=== PATIENT | male | born 1990 | race Caucasian/White ===

== ENCOUNTER → 2018-11-28 | Outpatient (CLI) | payer BC ==
[~2018-11-28] MED LIST: IOHEXOL 240 MG/ML 50ML VIAL. PO ONE; IOHEXOL 300 MG/ML 100ML VIAL. IV ONE; METR-34 PO
--- NOTE | 2018-11-28 09:55 | KCIC ---
Examination: CT of the abdomen pelvis with oral and IV contrast HISTORY: History of umbilical bleeding COMPARISON: None TECHNIQUE: Axial CT images of the abdomen pelvis were performed with oral and IV contrast. Coronal and sagittal reformatted performed Exposure: One or more of the following individualized dose reduction techniques were utilized for this examination: 1. Automated exposure control 2. Adjustment of the mA and/or kV according to patient size 3. Use of iterative reconstruction technique FINDINGS: Minimal bibasilar lung atelectasis. No evidence of free air identified in the abdomen. The visualized liver, spleen, adrenals grossly appears unremarkable. Gallbladder is mildly distended. The stomach is mildly distended. The visualized pancreas grossly appears unremarkable. The small bowel is nondilated. Feces and gas noted in the colon. Mild soft tissue density identified in the umbilicus. Urinary bladder is mildly distended. Bilateral kidneys enhance symmetrically. The caliber of the aorta grossly appears unremarkable. No evidence of lytic bony destructive lesion. IMPRESSION: 1. Mild soft tissue density identified in the umbilicus. Differential includes physiological or granulation tissue Clinical correlation and ultrasound is suggested. Electronically signed by: Aurelio Stanley MD (11/28/2018 9:52 AM) [id number]
== END | disposition home or self-care (01) ==
LOC: KCIC CT 08:13
PROVIDERS: ATTEND Internal Medicine
DX: R19.8 Other specified symptoms and signs involving the digestive system and abdomen (principal); N32.89 Other specified disorders of bladder; K31.89 Other diseases of stomach and duodenum; K82.8 Other specified diseases of gallbladder; J98.11 Atelectasis; Z87.891 Personal history of nicotine dependence
CPT/HCPCS: 74177; Q9966; Q9967